=== PATIENT | male | born 1945 | race Hispanic/Latino ===

== ENCOUNTER 2021-11-12 07:44 | Day surgery (SDC) | payer MEDICARE ==
[~2021-11-12 07:44] MED LIST: SODIUM CHLORIDE 0.9% 1000 ML 1,000 ML IV SCH
[2021-11-12] MEDS ORDERED: IPRATROPIUM/ALBUTEROL SULFATE 3 ML AMPUL.NEB IH ONE ×2 (08:22→08:44)
[2021-11-12] MEDS ORDERED: ALBUTEROL 2.5 MG/3 ML NEBU IH NR (08:30)
--- NOTE | 2021-11-12 08:33 | Anesthesia Consultation ---
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; severe aortic stenosis, EF 55%) Hx Percutaneous Transluminal Coronary Angioplasty (PTCA): Yes (cardiac cath 08/21; PCIlate proximal and mid RCA with ORSIRO JALIL x2) Hx Cardia Arrhythmia: Yes (atrial fibrillation with h/o cardioversion a month and a half ago) Hx Pacemaker: No Hx Internal Defibrillator: No Hx Valvular Heart Disease: Yes (severe aortic stenosis) Hx Heart Murmur: Yes - Central Nervous System Hx Neuromuscular Disorder: No Hx Seizures: No CVA: No Hx Psychiatric Problems: No - Gastrointestinal Hx Gastroesophageal Reflux Disease: No - Endocrine Hx Renal Disease: No Hx Liver Disease: No Hx Insulin Dependent Diabetes: No Hx Non-Insulin Dependent Diabetes: No Hx Thyroid Disease: No - Hematic Hx Anemia: No - Other Systems Hx Alcohol Use: No - Additional Comments Anesthesia Medical History Comments: No GAC. No FHAC.
--- NOTE | 2021-11-12 08:57 | Anesthesia Day of Surgery ---
Anesthesia Day of Surgery - Day of Surgery Patient Examined: Yes Patient H&P Reviewed: Yes Patient is NPO: Yes Cardiac Clearance: Yes
[2021-11-12] MEDS ORDERED: propofoL 200 MG/20 ML VIAL IV ONE ×2 (09:21→09:55)
--- NOTE | 2021-11-12 10:26 | Procedure Note ---
Date of procedure: 11/12/21 Pre-op diagnosis: Colon Poilyp Screening Post-op diagnosis: other (Multipe,Proximal Colon POlyps (6)/ Solitary, Descending Colon Polyp/Moderate, Leftr colon Diverticuli) Procedure: Colonoscopy with Hot Snare Polypectomy and Cold Biopsy Anesthesia: MAC Surgeon: RAIN GURROLA Estimated blood loss: minimal Pathology: list Specimen disposition: to lab Condition: stable Disposition: same day (Avoid aspirin and NSAID and anticoagulants for 5 days; otherwise resume previous medication. Encorage fiber intake and F/U in 1 to 2 weeks)
--- NOTE | 2021-11-12 10:38 | Operative Report ---
DATE OF SURGERY: 11/12/2021 PROCEDURE: Colonoscopy with hot snare polypectomy and cold biopsy. INDICATIONS: This is a 75-year-old white male who has an underlying history of atrial fibrillation. Colonoscopy was done as part of colon polyp screening. His last colonoscopy was more than 15 years ago. DESCRIPTION OF PROCEDURE: Procedure was done after getting informed consent with MAC anesthesia. Initial rectal examination was unremarkable. The instrument was passed through the rectum onto the cecum, which was identified with ileocecal valve and appendiceal orifice. Visualization was fair. There were 6 polyps that were noted in the right colon, namely the cecum and the proximal ascending colon. These were removed via hot snare polypectomy. Some were fulgurated using the tip of the polypectomy, snare and then removed by using the cold biopsy. The remaining part of the proximal colon and the transverse colon showed normal mucosa. There were a solitary polyp noted in the descending colon that was also removed by hot snare polypectomy and retrieved with using the cold biopsy. There was diffuse moderate scattered diverticula noted in the left colon and the rectum appeared normal on the retroverted view. There was minimal bleeding associated with the procedure. No complications associated with the procedure. ASSESSMENT: Colon polyp screening, multiple proximal colon was removed by hot snare polypectomy. Solitary descending colon polyp was removed also by hot snare polypectomy, left colon diverticula. PLAN: The patient will be asked to avoid aspirin and aspirin-related products for the next few days. Encouraged to take fiber supplements and follow up in the office in 1-2 weeks' time. Procedure was done in the GI lab with assistance of the GI lab team, which included the GI nurse, the overhead door technician and with assistance of Anesthesia. TID: [id number] RECEIPT: [id number] LORNA/THELMA
[2021-11-12 11:20] VITALS: BP 130/43
--- NOTE | 2021-11-12 16:27 | Post Anesthesia Evaluation ---
- Post Anesthesia Evaluation Patient Participated: Yes Airway Patent: Yes Stable Respiratory Function: Yes Nausea/Vomiting: No Temp > 96.8F: Yes Pain Manageable: Yes Adequeate Hydration: Yes Anesthesia Complications: No Block Receding Appropriately: Not Applicable Patient on Ventilator: No
== END 2021-11-12 11:35 | disposition home or self-care (01) ==
LOC: GIO 07:44
DX: Z12.11 Encounter for screening for malignant neoplasm of colon (principal); K57.30 Diverticulosis of large intestine without perforation or abscess without bleeding; D12.0 Benign neoplasm of cecum; D12.4 Benign neoplasm of descending colon; I48.91 Unspecified atrial fibrillation; I42.9 Cardiomyopathy, unspecified; I35.0 Nonrheumatic aortic (valve) stenosis; I10 Essential (primary) hypertension; J44.9 Chronic obstructive pulmonary disease, unspecified; Z87.891 Personal history of nicotine dependence; Z98.890 Other specified postprocedural states
CPT/HCPCS: 45385; 88305; J2704; J7030